=== PATIENT | male | born 1990 | race Caucasian/White ===

== ENCOUNTER 2020-04-08 18:12 | Emergency (ER) | payer OTHER ==
[~2020-04-08] VITALS: Ht 172.7 cm; Wt 86.2 kg
[2020-04-08 18:16] VITALS: BP 145/97
--- NOTE | 2020-04-08 18:35 | NUR ---
COVID SWAB DONE AND SENT TO LAB
--- NOTE | 2020-04-08 19:14 | NUR ---
Patient discharged to home in stable condition. Written and verbal after care instructions given. Patient verbalizes understanding of instruction.
== END 2020-04-08 19:15 | disposition home or self-care (01) ==
LOC: ER 18:12
DX: Z20.828 Contact with and (suspected) exposure to other viral communicable diseases (principal)
CPT/HCPCS: 99283; C9803; U0003

== ENCOUNTER 2020-04-17 04:51 | Emergency (ER) | payer OTHER ==
[~2020-04-17] VITALS: Ht 172.7 cm; Wt 86.2 kg
[2020-04-17 04:54] VITALS: BP 121/68
== END 2020-04-17 05:09 | disposition home or self-care (01) ==
LOC: ER 04:51
DX: Z20.828 Contact with and (suspected) exposure to other viral communicable diseases (principal)
CPT/HCPCS: 99283; C9803; U0003

== ENCOUNTER 2020-04-27 04:30 | Emergency (ER) | payer OTHER ==
[~2020-04-27] VITALS: Ht 172.7 cm; Wt 90.7 kg
[2020-04-27 04:30] VITALS: BP 120/75
--- NOTE | 2020-04-27 05:01 | NUR ---
covid swab collected. sent to lab
== END 2020-04-27 05:02 | disposition home or self-care (01) ==
LOC: ER 04:33
DX: Z20.828 Contact with and (suspected) exposure to other viral communicable diseases (principal)
CPT/HCPCS: 99283; C9803; U0003

== ENCOUNTER 2020-04-29 04:23 | Emergency (ER) | payer OTHER ==
[~2020-04-29] VITALS: Ht 172.7 cm; Wt 90.7 kg
[2020-04-29 04:24] VITALS: BP 131/65
== END 2020-04-29 04:49 | disposition home or self-care (01) ==
LOC: ER 04:24
DX: Z20.828 Contact with and (suspected) exposure to other viral communicable diseases (principal)
CPT/HCPCS: 99283; C9803; U0003

== ENCOUNTER 2020-05-07 04:51 | Emergency (ER) | payer OTHER ==
[~2020-05-07] VITALS: Ht 175.3 cm; Wt 90.7 kg
[2020-05-07 04:54] VITALS: BP 132/64
== END 2020-05-07 05:02 | disposition home or self-care (01) ==
LOC: ER 04:53
DX: Z20.828 Contact with and (suspected) exposure to other viral communicable diseases (principal)
CPT/HCPCS: 99283; C9803; U0003

== ENCOUNTER 2020-05-11 05:32 | Emergency (ER) | payer OTHER ==
[~2020-05-11] VITALS: Ht 175.3 cm; Wt 90.7 kg
[2020-05-11 05:34] VITALS: BP 132/65
== END 2020-05-11 05:56 | disposition home or self-care (01) ==
LOC: ER 05:34
DX: Z20.828 Contact with and (suspected) exposure to other viral communicable diseases (principal)
CPT/HCPCS: 99283; C9803; U0003

== ENCOUNTER 2020-05-13 04:17 | Emergency (ER) | payer OTHER ==
[~2020-05-13] VITALS: Ht 175.3 cm; Wt 90.7 kg
[2020-05-13 04:22] VITALS: BP 132/64
== END 2020-05-13 04:36 | disposition home or self-care (01) ==
LOC: ER 04:19
DX: Z20.828 Contact with and (suspected) exposure to other viral communicable diseases (principal)
CPT/HCPCS: 99283; C9803; U0003

== ENCOUNTER 2020-05-20 02:15 | Emergency (ER) | payer OTHER ==
[~2020-05-20] VITALS: Ht 175.3 cm; Wt 90.7 kg
[2020-05-20 02:16] VITALS: BP 124/65
== END 2020-05-20 03:00 | disposition home or self-care (01) ==
LOC: ER 02:16
DX: Z20.828 Contact with and (suspected) exposure to other viral communicable diseases (principal)
CPT/HCPCS: 99283; C9803; U0003

== ENCOUNTER 2020-05-25 04:08 | Emergency (ER) | payer OTHER ==
[~2020-05-25] VITALS: Ht 175.3 cm; Wt 90.7 kg
[2020-05-25 04:09] VITALS: BP 125/62
== END 2020-05-25 05:11 | disposition home or self-care (01) ==
LOC: ER 04:10
DX: Z20.828 Contact with and (suspected) exposure to other viral communicable diseases (principal)
CPT/HCPCS: 99283; C9803; U0003

== ENCOUNTER 2020-05-28 04:10 | Emergency (ER) | payer OTHER ==
[~2020-05-28] VITALS: Ht 175.3 cm; Wt 90.7 kg
[2020-05-28 04:10] VITALS: BP 125/61
--- NOTE | 2020-05-28 04:20 | NUR ---
covid swab collected and sent to the lab.
== END 2020-05-28 04:38 | disposition home or self-care (01) ==
LOC: ER 04:11
DX: Z20.822 Contact with and (suspected) exposure to COVID-19 (principal)
CPT/HCPCS: 99283; C9803; U0003

== ENCOUNTER 2020-06-02 04:04 | Emergency (ER) | payer OTHER ==
[~2020-06-02] VITALS: Ht 175.3 cm; Wt 90.7 kg
[2020-06-02 04:05] VITALS: BP 134/72
== END 2020-06-02 04:21 | disposition home or self-care (01) ==
LOC: ER 04:04
DX: Z20.822 Contact with and (suspected) exposure to COVID-19 (principal)
CPT/HCPCS: 99283; C9803; U0003

== ENCOUNTER 2020-06-08 04:16 | Emergency (ER) | payer OTHER ==
[~2020-06-08] VITALS: Ht 175.3 cm; Wt 90.7 kg
[2020-06-08 04:18] VITALS: BP 121/72
== END 2020-06-08 05:00 | disposition home or self-care (01) ==
LOC: ER 04:20
DX: Z20.822 Contact with and (suspected) exposure to COVID-19 (principal)
CPT/HCPCS: 99283; C9803; U0003

== ENCOUNTER 2020-06-10 23:54 | Emergency (ER) | payer OTHER ==
[~2020-06-10] VITALS: Ht 175.3 cm; Wt 90.7 kg
[2020-06-11 00:06] VITALS: BP 132/85
== END 2020-06-11 00:27 | disposition home or self-care (01) ==
LOC: ER 23:54
DX: Z20.822 Contact with and (suspected) exposure to COVID-19 (principal)
CPT/HCPCS: 99283; C9803; U0003

== ENCOUNTER 2020-06-17 00:59 | Emergency (ER) | payer OTHER ==
[~2020-06-17] VITALS: Ht 170.2 cm; Wt 74.4 kg
[2020-06-17 01:01] VITALS: BP 114/71
== END 2020-06-17 01:16 | disposition home or self-care (01) ==
LOC: ER 01:02
DX: Z20.822 Contact with and (suspected) exposure to COVID-19 (principal)
CPT/HCPCS: 99283; C9803; U0003

== ENCOUNTER 2020-06-24 01:56 | Emergency (ER) | payer OTHER ==
[~2020-06-24] VITALS: Ht 175.3 cm; Wt 90.7 kg
[2020-06-24 01:58] VITALS: BP 132/65
== END 2020-06-24 03:09 | disposition home or self-care (01) ==
LOC: ER 01:59
DX: Z20.822 Contact with and (suspected) exposure to COVID-19 (principal)
CPT/HCPCS: 99283; C9803; U0003

== ENCOUNTER 2020-06-27 23:35 | Emergency (ER) | payer OTHER ==
[~2020-06-27] VITALS: Ht 175.3 cm; Wt 90.7 kg
[2020-06-27 23:43] VITALS: BP 131/78
== END 2020-06-28 00:08 | disposition home or self-care (01) ==
LOC: ER 23:41
DX: Z20.822 Contact with and (suspected) exposure to COVID-19 (principal)
CPT/HCPCS: 99283; C9803; U0003

== ENCOUNTER 2020-07-01 04:17 | Emergency (ER) | payer OTHER ==
[~2020-07-01] VITALS: Ht 175.3 cm; Wt 90.7 kg
[2020-07-01 04:18] VITALS: BP 117/75
== END 2020-07-01 04:36 | disposition home or self-care (01) ==
LOC: ER 04:18
DX: Z20.822 Contact with and (suspected) exposure to COVID-19 (principal)
CPT/HCPCS: 99283; C9803; U0003

== ENCOUNTER 2020-07-06 04:46 | Emergency (ER) | payer OTHER ==
[~2020-07-06] VITALS: Ht 175.3 cm; Wt 90.7 kg
[2020-07-06 04:46] VITALS: BP 123/65
== END 2020-07-06 05:44 | disposition home or self-care (01) ==
LOC: ER 04:52
DX: Z20.822 Contact with and (suspected) exposure to COVID-19 (principal)
CPT/HCPCS: 99283; C9803; U0003

== ENCOUNTER 2020-07-14 00:40 | Emergency (ER) | payer OTHER ==
[~2020-07-14] VITALS: Ht 175.3 cm; Wt 90.7 kg
[2020-07-14 00:43] VITALS: BP 141/84
== END 2020-07-14 01:16 | disposition home or self-care (01) ==
LOC: ER 00:43
DX: Z20.822 Contact with and (suspected) exposure to COVID-19 (principal)
CPT/HCPCS: 99283; C9803; U0003

== ENCOUNTER 2020-07-16 04:32 | Emergency (ER) | payer OTHER ==
[~2020-07-16] VITALS: Ht 175.3 cm; Wt 90.7 kg
[2020-07-16 04:34] VITALS: BP 132/61
== END 2020-07-16 04:48 | disposition home or self-care (01) ==
LOC: ER 04:34
DX: Z20.822 Contact with and (suspected) exposure to COVID-19 (principal)
CPT/HCPCS: 99283; C9803; U0003

== ENCOUNTER 2020-07-20 02:47 | Emergency (ER) | payer OTHER ==
[~2020-07-20] VITALS: Ht 175.3 cm; Wt 90.7 kg
[2020-07-20 02:47] VITALS: BP 121/59
== END 2020-07-20 03:50 | disposition home or self-care (01) ==
LOC: ER 02:49
DX: Z20.822 Contact with and (suspected) exposure to COVID-19 (principal)
CPT/HCPCS: 99283; C9803; U0003

== ENCOUNTER 2020-07-22 01:04 | Emergency (ER) | payer OTHER ==
[~2020-07-22] VITALS: Ht 172.7 cm; Wt 86.6 kg
[2020-07-22 01:13] VITALS: BP 118/73
== END 2020-07-22 02:03 | disposition home or self-care (01) ==
LOC: ER 01:10
DX: Z20.822 Contact with and (suspected) exposure to COVID-19 (principal)
CPT/HCPCS: 99283; C9803; U0003

== ENCOUNTER 2020-07-27 02:11 | Emergency (ER) | payer OTHER ==
[~2020-07-27] VITALS: Ht 172.7 cm; Wt 86.2 kg
[2020-07-27 02:12] VITALS: BP 126/65
== END 2020-07-27 02:30 | disposition home or self-care (01) ==
LOC: ER 02:11
DX: Z20.822 Contact with and (suspected) exposure to COVID-19 (principal)
CPT/HCPCS: 99283; C9803; U0003

== ENCOUNTER 2020-08-06 02:17 | Emergency (ER) | payer OTHER ==
[~2020-08-06] VITALS: Ht 172.7 cm; Wt 86.2 kg
[2020-08-06 02:20] VITALS: BP 135/64
== END 2020-08-06 02:43 | disposition home or self-care (01) ==
LOC: ER 02:18
DX: Z20.822 Contact with and (suspected) exposure to COVID-19 (principal)
CPT/HCPCS: 99283; C9803; U0003

== ENCOUNTER 2020-08-13 02:12 | Emergency (ER) | payer OTHER ==
[~2020-08-13] VITALS: Ht 172.7 cm; Wt 86.2 kg
[2020-08-13 02:13] VITALS: BP 128/67
== END 2020-08-13 02:49 | disposition home or self-care (01) ==
LOC: ER 02:16
DX: Z20.822 Contact with and (suspected) exposure to COVID-19 (principal)
CPT/HCPCS: 99283; C9803; U0003

== ENCOUNTER 2020-08-25 02:47 | Emergency (ER) | payer OTHER ==
[~2020-08-25] VITALS: Ht 172.7 cm; Wt 86.2 kg
[2020-08-25 02:49] VITALS: BP 134/88
== END 2020-08-25 02:59 | disposition home or self-care (01) ==
LOC: ER 02:52
DX: Z20.822 Contact with and (suspected) exposure to COVID-19 (principal)
CPT/HCPCS: 99283; C9803; U0003

== ENCOUNTER 2020-09-01 03:40 | Emergency (ER) | payer OTHER ==
[~2020-09-01] VITALS: Ht 172.7 cm; Wt 86.2 kg
[2020-09-01 03:41] VITALS: BP 124/84
== END 2020-09-01 04:07 | disposition home or self-care (01) ==
LOC: ER 03:41
DX: Z20.822 Contact with and (suspected) exposure to COVID-19 (principal)
CPT/HCPCS: 99283; C9803; U0003

== ENCOUNTER 2020-09-10 03:42 | Emergency (ER) | payer OTHER ==
[~2020-09-10] VITALS: Ht 172.7 cm; Wt 86.2 kg
[2020-09-10 03:47] VITALS: BP 128/77
== END 2020-09-10 04:00 | disposition home or self-care (01) ==
LOC: ER 03:46
DX: Z20.822 Contact with and (suspected) exposure to COVID-19 (principal)
CPT/HCPCS: 99283; C9803; U0003

== ENCOUNTER 2020-10-02 02:26 | Emergency (ER) | payer OTHER ==
[~2020-10-02] VITALS: Ht 172.7 cm; Wt 86.2 kg
[2020-10-02 02:27] VITALS: BP 129/79
== END 2020-10-02 02:53 | disposition home or self-care (01) ==
LOC: ER 02:26
DX: Z20.822 Contact with and (suspected) exposure to COVID-19 (principal)
CPT/HCPCS: 99283; C9803; U0003

== ENCOUNTER 2020-10-20 03:19 | Emergency (ER) | payer OTHER ==
[~2020-10-20] VITALS: Ht 172.7 cm; Wt 86.2 kg
[2020-10-20 03:33] VITALS: BP 131/68
== END 2020-10-20 03:54 | disposition home or self-care (01) ==
LOC: ER 03:22
DX: Z20.822 Contact with and (suspected) exposure to COVID-19 (principal)
CPT/HCPCS: 99283; C9803; U0003

== ENCOUNTER 2020-11-03 02:28 | Emergency (ER) | payer OTHER ==
[~2020-11-03] VITALS: Ht 172.7 cm; Wt 86.2 kg
[2020-11-03 02:28] VITALS: BP 132/64
--- NOTE | 2020-11-03 20:59 | NUR ---
LAB CALLED REGARDING NEGATIVE COVID RESULT.
== END 2020-11-03 03:26 | disposition home or self-care (01) ==
LOC: ER 02:28
DX: Z20.822 Contact with and (suspected) exposure to COVID-19 (principal)
CPT/HCPCS: 99283; C9803; U0003

== ENCOUNTER 2021-02-04 01:22 | Emergency (ER) | payer OTHER ==
[~2021-02-04] VITALS: Ht 172.7 cm; Wt 86.2 kg
[2021-02-04 01:25] VITALS: BP 122/68
== END 2021-02-04 03:33 | disposition home or self-care (01) ==
LOC: ER 01:22
DX: Z20.822 Contact with and (suspected) exposure to COVID-19 (principal)
CPT/HCPCS: 99283; C9803; U0003